=== PATIENT | female | born 1935 | race Caucasian/White ===

== ENCOUNTER 2016-08-20 | Outpatient (CLI) | payer MEDICARE | END 2016-08-20 07:23 | disposition short-term general hospital (02) | CPT/HCPCS: A0425; A0427 ==

== ENCOUNTER 2017-05-22 22:20 | Outpatient (CLI) | payer MEDICARE | END 2017-05-22 22:21 | disposition EMS.NT | LOC: EMS 22:20 | PROVIDERS: ATTEND Surgery | DX: T17.298A Other foreign object in pharynx causing other injury, initial encounter (principal) ==

== ENCOUNTER 2018-04-08 18:10 | Outpatient (CLI) | payer MEDICARE | END 2018-04-08 18:11 | disposition short-term general hospital (02) | LOC: EMS 18:10 | PROVIDERS: ATTEND Surgery | DX: M79.601 Pain in right arm (principal); W19.XXXA Unspecified fall, initial encounter; Y93.89 Activity, other specified; Y92.009 Unspecified place in unspecified non-institutional (private) residence as the place of occurrence of the external cause | CPT/HCPCS: A0425; A0429 ==

== ENCOUNTER 2019-11-29 14:53 | Outpatient (CLI) | payer MEDICARE | END 2019-11-29 14:54 | disposition short-term general hospital (02) | LOC: EMS 14:53 | PROVIDERS: ATTEND Surgery | DX: M25.551 Pain in right hip (principal); Z91.81 History of falling | CPT/HCPCS: A0425; A0429 ==

== ENCOUNTER 2020-06-09 00:38 | Outpatient (CLI) | payer MEDICARE | END 2020-06-09 00:39 | disposition short-term general hospital (02) | LOC: EMS 00:38 | PROVIDERS: ATTEND Surgery | DX: R07.9 Chest pain, unspecified (principal) | CPT/HCPCS: A0425; A0427 ==

== ENCOUNTER 2020-12-31 03:54 | Outpatient (CLI) | payer MEDICARE | END 2020-12-31 03:55 | disposition short-term general hospital (02) | LOC: EMS 03:54 | DX: R25.3 Fasciculation (principal); R50.9 Fever, unspecified; R82.998 Other abnormal findings in urine | CPT/HCPCS: A0425; A0429 ==

== ENCOUNTER 2021-05-29 12:55 | Outpatient (CLI) | payer MEDICARE | END 2021-05-29 12:56 | disposition short-term general hospital (02) | LOC: EMS 12:55 | DX: R10.30 Lower abdominal pain, unspecified (principal); N39.0 Urinary tract infection, site not specified | CPT/HCPCS: A0425; A0429 ==

== ENCOUNTER 2021-10-11 11:13 | Outpatient (CLI) | payer MEDICARE | END 2021-10-11 11:14 | disposition short-term general hospital (02) | LOC: EMS 11:13 | DX: R06.09 Other forms of dyspnea (principal) | CPT/HCPCS: A0425; A0429 ==

== ENCOUNTER → 2022-05-06 | Outpatient (CLI) | payer MEDICARE | END | disposition short-term general hospital (02) | LOC: EMS 08:09 | DX: R06.03 Acute respiratory distress (principal) | CPT/HCPCS: A0425; A0427 ==

== ENCOUNTER 2023-01-14 09:18 | Outpatient (CLI) | payer MEDICARE | END 2023-01-14 09:19 | disposition EMS.NT | LOC: EMS 09:18 | DX: R04.0 Epistaxis (principal); Z79.01 Long term (current) use of anticoagulants ==

== ENCOUNTER 2023-05-06 07:59 | Outpatient (CLI) | payer MEDICARE | END 2023-05-06 23:59 | disposition short-term general hospital (02) | LOC: EMS 07:59 | DX: R53.1 Weakness (principal); R50.9 Fever, unspecified | CPT/HCPCS: A0425; A0427 ==